=== PATIENT | male | born 1965 | race Caucasian/White ===

== ENCOUNTER 2024-12-18 00:09 | Emergency (ER) | payer OTHER, SELFPAY ==
[2024-12-18] VITALS (11 sets, daily range): BP systolic 151–166; BP diastolic 74–99; PULSE 76–86; RESP 16; O2SAT 95–98; BMI 23.6
--- NOTE | 2024-12-18 00:34 | EKG_ITS ---
[facility] [address] [place] [address] Test Date: 2024-12-18 Pat Name: Ari Thayer Department: [facility] Room: Gender: Male [employer]: : [id number] Requested By: Order Number: [id number] Reading MD: Johny Olmedo Measurements Intervals [place] Rate: 82 P: 70 CA: 180 QRS: 20 QRSD: 102 T: 50 QT: 380 QTc: 443 Interpretive Statements Normal sinus rhythm Electronically Signed On 12-19-2024 8:45:13 PDT by Johny Olmedo
[2024-12-18 00:48] LABS: Add Manual Diff / Slide Review NO; Basophils Absolute Auto 100 /uL (0-100); Basophils Percent Auto 1.4 % (0-2); Eosinophils Absolute Auto 300 /uL (0-450); Eosinophils Percent Auto 3.5 % (2-4); Hemoglobin 13.9 g/dL (13.5-17.5); Lymphocytes Absolute Auto 2100 /uL (1100-4500); Mean Corpuscular HGB Conc 34.7 % (30-36); Mean Corpuscular Volume 83.6 fL (80-100); Monocytes Absolute Auto 700 /uL (0-900); Monocytes Percent Auto 9.3 % (3-14); Neutrophils Absolute Auto 4700 /uL (1500-7000); Neutrophils Percent Auto 58.8 % (50-75); Platelet Count 269 X10^3/uL (150-400); Red Blood Cell Count 4.79 X10^6/uL (4.5-5.9); Red Cell Distribution Width 15.1 % (11.6-14.8); White Blood Cell Count 7.9 X10^3/uL (4.5-11.0)
[2024-12-18 01:04] LABS: Blood Urea Nitrogen 15 mg/dL (9-20); Calcium 9.1 mg/dL (8.4-10.2); Carbon Dioxide 30 mmol/L (22-32); Chloride 103 mmol/L (98-107); Estimated Glomerular Filt Rate > 60 mL/min (>60); Glucose 147 mg/dL (80-110); HEMOLYSIS < 15 (0-50); Potassium 3.6 mmol/L (3.4-5.1); Sodium 138 mmol/L (137-145)
[2024-12-18 01:16] LABS: Troponin I < 0.012 ng/mL (0.01-0.034)
--- NOTE | 2024-12-18 03:38 | DI.RAD.S_ITS ---
PROCEDURE: XR CHEST 1V INDICATIONS: weak/meth use TECHNIQUE: One view of the chest was acquired. COMPARISON: None. FINDINGS: Surgical changes and devices: None. Lungs and pleura: Lungs are clear. No pleural effusions or pneumothorax. Mediastinum: Mediastinal contours appear normal. Heart size is normal. Bones and chest wall: No suspicious bony lesions. Overlying soft tissues appear unremarkable. IMPRESSION: No acute cardiopulmonary abnormality is seen. There is no significant discrepancy when compared to the overnight preliminary report. Approved by: Brennen Parker M.D. on 12/18/2024 at 9:05
--- NOTE | 2024-12-18 03:41 | ED_ITS ---
HPI - General Adult <Florian Mcgee MD - Last Filed: 12/18/24 15:58> General Chief complaint: Weakness Stated complaint: Weakness in arms, dizzy Time Seen by Provider: 12/18/24 03:35 Source: patient Mode of arrival: Wheelchair History of Present Illness HPI narrative: 59-year-old male complains of 2 days duration generalized weakness, occasional cough per family members, no injury or trauma or new activities. No fevers or chills. No weakness to face arm or leg on 1 side. No numbness to face arm or leg on 1 side. Has been able to walk around. Denies abdominal discomfort. Denies chest pain shortness of breath. No headache. Has chronic neck pain feels about the same, worse when he feels stressed. Nursing notes mentioned dizziness but he would not meant this to me. Patient History <Florian Mcgee MD - Last Filed: 12/18/24 15:58> Social History Smoking Status: Current every day smoker Smoking Status: Current every day smoker tobacco type: cigarettes Exam <Florian Mcgee MD - Last Filed: 12/18/24 15:58> Narrative Exam Narrative: GENERAL: Well-developed patient, in mild distress. HEAD: Atraumatic. Normocephalic. EYES: Pupils equal round and reactive. Extraocular motions intact. No scleral icterus. No injection or drainage. ENT: Nose without bleeding, purulent drainage. Throat without erythema, tonsillar hypertrophy or exudate. Airway patent. NECK: Trachea midline. Non tender CARDIOVASCULAR: Regular rate and rhythm without murmurs, gallops, or rubs. RESPIRATORY: Clear to auscultation. Breath sounds equal bilaterally. No wheezes, rales, or rhonchi. GASTROINTESTINAL: Abdomen soft, non-tender, nondistended. EXTREMITIES: No edema or joint tenderness. BACK: Nontender without deformity or crepitance. No flank tenderness. NEURO: AOx3. Motor functions grossly nonfocal SKIN: No rash or erythema of visible areas Initial Vital Signs Initial Vital Signs: Vital Signs Pulse Rate 86 12/18/24 00:16 Respiratory Rate 16 12/18/24 00:16 Blood Pressure 160/99 H 12/18/24 00:16 Pulse Oximetry 97 12/18/24 00:16 Oxygen Delivery Method Room Air 12/18/24 00:16 <Kemi Pickett DO - Last Filed: 12/18/24 08:05> Initial Vital Signs Initial Vital Signs: Vital Signs Pulse Rate 86 12/18/24 00:16 Respiratory Rate 16 12/18/24 00:16 Blood Pressure 160/99 H 12/18/24 00:16 Pulse Oximetry 97 12/18/24 00:16 Oxygen Delivery Method Room Air 12/18/24 00:16 Course <Florian Mcgee MD - Last Filed: 12/18/24 15:58> Orders Ordered: ED Orders 12/18/24 07:00 Troponin I Stat Vital Signs Vital signs: Vital Signs - 8 hr 12/18/24 08:00 12/18/24 08:00 12/18/24 08:13 Pulse Rate 83 86 Blood Pressure 165/92 H Pulse Oximetry 95 97 <Kemi Pickett DO - Last Filed: 12/18/24 08:05> Orders Ordered: ED Orders 12/18/24 07:00 Troponin I Stat Vital Signs Vital signs: Vital Signs - 8 hr 12/18/24 08:00 12/18/24 08:00 12/18/24 08:13 Pulse Rate 83 86 Blood Pressure 165/92 H Pulse Oximetry 95 97 Medical Decision Making <Florian Mcgee MD - Last Filed: 12/18/24 15:58> Lab Data Lab results reviewed: Yes I reviewed the patient's lab results. Lab results narrative: White blood cell count 7900, hemoglobin 13.9, platelets adequate. Glucose 147. BUN 15 with creatinine 0.94 normal renal functions. Serum CO2 30. Sodium 138, potassium 3.6, chloride 103. Troponin negative. 12/18/24 00:30 12/18/24 00:30 Labs: Lab Results 12/18/24 12/18/24 12/18/24 Range/Units 00:24 00:30 04:40 WBC 7.9 (4.5-11.0) X10^3/uL RBC 4.79 (4.5-5.9) X10^6/uL Hgb 13.9 (13.5-17.5) g/dL Hct 40.0 L (41-53) % MCV 83.6 (80-100) fL MCH 29.0 (26-34) PG MCHC 34.7 (30-36) % RDW 15.1 H (11.6-14.8) % Plt Count 269 (150-400) X10^3/uL Neut % (Auto) 58.8 (50-75) % Lymph % (Auto) 27.0 (25-40) % [place] % (Auto) 9.3 (3-14) % Eos % (Auto) 3.5 (2-4) % Baso % (Auto) 1.4 (0-2) % Neut # (Auto) 4700 (4302-5022) /uL Lymph # (Auto) 2100 (5433-0546) /uL [place] # (Auto) 700 (0-900) /uL Eos # (Auto) 300 (0-450) /uL Baso # (Auto) 100 (0-100) /uL Sodium 138 (137-145) mmol/L Potassium 3.6 (3.4-5.1) mmol/L Chloride 103 (98-107) mmol/L Carbon Dioxide 30 (22-32) mmol/L BUN 15 (9-20) mg/dL Creatinine 0.94 (0.66-1.25) mg/dL Estimated GFR > 60 (>60) mL/min BUN/Creatinine Ratio 16.0 (6-22) Glucose 147 H (80-110) mg/dL Calcium 9.1 (8.4-10.2) mg/dL Troponin I < 0.012 (0.01-0.034) ng/mL Ethyl Alcohol < 10 ( - 10) mg/dL SARS-CoV-2 (PCR) Negative (Negative) Influenza A (RT-PCR) Flu a negative (NEGATIVE) Influenza B (RT-PCR) Flu b negative (NEGATIVE) RSV (PCR) Negative (Negative) 12/18/24 Range/Units 07:00 WBC (4.5-11.0) X10^3/uL RBC (4.5-5.9) X10^6/uL Hgb (13.5-17.5) g/dL Hct (41-53) % MCV (80-100) fL MCH (26-34) PG MCHC (30-36) % RDW (11.6-14.8) % Plt Count (150-400) X10^3/uL Neut % (Auto) (50-75) % Lymph % (Auto) (25-40) % [place] % (Auto) (3-14) % Eos % (Auto) (2-4) % Baso % (Auto) (0-2) % Neut # (Auto) (9657-6939) /uL Lymph # (Auto) (1416-1011) /uL [place] # (Auto) (0-900) /uL Eos # (Auto) (0-450) /uL Baso # (Auto) (0-100) /uL Sodium (137-145) mmol/L Potassium (3.4-5.1) mmol/L Chloride (98-107) mmol/L Carbon Dioxide (22-32) mmol/L BUN (9-20) mg/dL Creatinine (0.66-1.25) mg/dL Estimated GFR (>60) mL/min BUN/Creatinine Ratio (6-22) Glucose (80-110) mg/dL Calcium (8.4-10.2) mg/dL Troponin I < 0.012 (0.01-0.034) ng/mL Ethyl Alcohol ( - 10) mg/dL SARS-CoV-2 (PCR) (Negative) Influenza A (RT-PCR) (NEGATIVE) Influenza B (RT-PCR) (NEGATIVE) RSV (PCR) (Negative) ECG Data Attestation: I personally reviewed and interpreted this ECG as follows: Interpretation: Normal sinus rhythm with rate of 82, no obvious ST segment elevation or depression changes. [place] 180, QRS 102, QTC 443. MDM Narrative Medical decision making narrative: 59-year-old male with generalized weakness, couple of days of cough, no oxygen requirement, no respiratory distress, lungs clear, unremarkable neuro exam. EKG, chest x-ray, COVID/flu swab, labs pending. Chest x-ray shows no acute changes, see tele radiology report. EKG without obvious ischemic changes. Initial troponin negative. RN January reports patient confided to her that he had smoked crystal methamphetamine [facility] [place] [facility] had [facility] that brought him here. 0700, UDS and interval troponin pending, signed out to oncoming ED shift physician Dr. Pickett. <Kemi Pickett, - Last Filed: 12/18/24 08:05> Lab Data Labs: Lab Results 12/18/24 12/18/24 12/18/24 Range/Units 00:24 00:30 04:40 WBC 7.9 (4.5-11.0) X10^3/uL RBC 4.79 (4.5-5.9) X10^6/uL Hgb 13.9 (13.5-17.5) g/dL Hct 40.0 L (41-53) % MCV 83.6 (80-100) fL MCH 29.0 (26-34) PG MCHC 34.7 (30-36) % RDW 15.1 H (11.6-14.8) % Plt Count 269 (150-400) X10^3/uL Neut % (Auto) 58.8 (50-75) % Lymph % (Auto) 27.0 (25-40) % [place] % (Auto) 9.3 (3-14) % Eos % (Auto) 3.5 (2-4) % Baso % (Auto) 1.4 (0-2) % Neut # (Auto) 4700 (5580-2809) /uL Lymph # (Auto) 2100 (5402-7970) /uL [place] # (Auto) 700 (0-900) /uL Eos # (Auto) 300 (0-450) /uL Baso # (Auto) 100 (0-100) /uL Sodium 138 (137-145) mmol/L Potassium 3.6 (3.4-5.1) mmol/L Chloride 103 (98-107) mmol/L Carbon Dioxide 30 (22-32) mmol/L BUN 15 (9-20) mg/dL Creatinine 0.94 (0.66-1.25) mg/dL Estimated GFR > 60 (>60) mL/min BUN/Creatinine Ratio 16.0 (6-22) Glucose 147 H (80-110) mg/dL Calcium 9.1 (8.4-10.2) mg/dL Troponin I < 0.012 (0.01-0.034) ng/mL Ethyl Alcohol < 10 ( - 10) mg/dL SARS-CoV-2 (PCR) Negative (Negative) Influenza A (RT-PCR) Flu a negative (NEGATIVE) Influenza B (RT-PCR) Flu b negative (NEGATIVE) RSV (PCR) Negative (Negative) 12/18/24 Range/Units 07:00 WBC (4.5-11.0) X10^3/uL RBC (4.5-5.9) X10^6/uL Hgb (13.5-17.5) g/dL Hct (41-53) % MCV (80-100) fL MCH (26-34) PG MCHC (30-36) % RDW (11.6-14.8) % Plt Count (150-400) X10^3/uL Neut % (Auto) (50-75) % Lymph % (Auto) (25-40) % [place] % (Auto) (3-14) % Eos % (Auto) (2-4) % Baso % (Auto) (0-2) % Neut # (Auto) (5508-3007) /uL Lymph # (Auto) (2709-1672) /uL [place] # (Auto) (0-900) /uL Eos # (Auto) (0-450) /uL Baso # (Auto) (0-100) /uL Sodium (137-145) mmol/L Potassium (3.4-5.1) mmol/L Chloride (98-107) mmol/L Carbon Dioxide (22-32) mmol/L BUN (9-20) mg/dL Creatinine (0.66-1.25) mg/dL Estimated GFR (>60) mL/min BUN/Creatinine Ratio (6-22) Glucose (80-110) mg/dL Calcium (8.4-10.2) mg/dL Troponin I < 0.012 (0.01-0.034) ng/mL Ethyl Alcohol ( - 10) mg/dL SARS-CoV-2 (PCR) (Negative) Influenza A (RT-PCR) (NEGATIVE) Influenza B (RT-PCR) (NEGATIVE) RSV (PCR) (Negative) [facility] Narrative Medical decision making narrative: 59-year-old male with generalized weakness, couple of days of cough, no oxygen requirement, no respiratory distress, lungs clear, unremarkable neuro exam. EKG, chest x-ray, COVID/flu swab, labs pending. Chest x-ray shows no acute changes, see tele radiology report. EKG without obvious ischemic changes. Initial troponin negative. RN January patient confided to her that he had smoked crystal methamphetamine before going to the [facility] where he had symptoms that brought him here. 0700, UDS and interval troponin pending, signed out to oncoming ED shift physician Dr. Pickett. 0730 Dr. Pickett patient signed out to me by Dr. Mcgee seen evaluated patient myself. Patient is generally feeling weak. He has no chest pain or shortness of breath. 2- troponins. Blood work is overall reassuring. He was complaining of shoulder pain which he reports he was some cracking definitely hurts with movement. Currently sleeping easily arousable. At this time no need for further workup. Discharge Plan Departure Patient Disposition: Home Clinical Impression: Generalized weakness Activity Restrictions/Additional Instructions: *You have been diagnosed with weakness *What to do: Rest increase fluids as tolerated *Continue to take medications as directed *Follow up with your primary care provider in 2-3 days or call [phone] *Return to ER if you should have increasing shortness of breath chest pain not tolerating fluids or any new, worsening or concerning symptoms Stand Alone Forms: Patient Portal/API/Survey
[2024-12-18 05:13] LABS: Ethanol (ETOH) < 10 mg/dL
[2024-12-18 05:41] LABS: Influenza A - CEPHEID Flu A NEGATIVE (NEGATIVE); Influenza B - CEPHEID Flu B NEGATIVE (NEGATIVE); Respiratory Syncytial Virus Negative (Negative)
[2024-12-18 05:51] LABS: COVID-19 CEPHEID 4-PLEX PCR Negative (Negative)
[2024-12-18 07:34] LABS: Troponin I < 0.012 ng/mL (0.01-0.034)
== END 2024-12-18 08:18 | disposition home or self-care (01) ==
PROVIDERS: Emergency Medicine; Emergency Provider Emergency Medicine
DX: R53.1 Weakness (principal); R42 Dizziness and giddiness; R05.9 Cough, unspecified; F15.10 Other stimulant abuse, uncomplicated; Z87.728 Personal history of other specified (corrected) congenital malformations of nervous system and sense organs
CPT/HCPCS: 0241U; 71045; 80048; 80320; 84484; 85025; 93005; 99282; 99284

== ENCOUNTER 2025-07-26 07:33 | Day surgery (SDC) | payer MEDICARE, MEDICAID, SELFPAY ==
[2025-07-19 08:28] VITALS: BMI 25.2
[2025-07-26 08:04] VITALS: BP 172/104; PULSE 79; RESP 20; TEMP 36.1; O2SAT 99
== END 2025-07-26 07:35 | disposition home or self-care (01) ==
PROVIDERS: Referring Provider Surgery; Visit Provider Surgery
CPT/HCPCS: J2250; J2704; J3010